=== PATIENT | female | born 1940 | race Caucasian/White ===

== ENCOUNTER → 2017-11-23 | Outpatient (CLI) | payer OTHER ==
[~2017-11-23] MED LIST: IOPAMIDOL (ISOVUE 370) 100 ML BTL IV ONE
== END ==
LOC: FIMAGING 07:49
PROVIDERS: ATTEND Surgery
DX: I87.2 Venous insufficiency (chronic) (peripheral) (principal); R09.89 Other specified symptoms and signs involving the circulatory and respiratory systems; R60.0 Localized edema; Q62.11 Congenital occlusion of ureteropelvic junction; M17.0 Bilateral primary osteoarthritis of knee
CPT/HCPCS: 75635; 93970; Q9967; 82565-PO

== ENCOUNTER → 2018-05-25 | Outpatient (CLI) | payer OTHER | LOC: BHFA 09:30 | PROVIDERS: ATTEND Internal Medicine Cardiovascular Disease | DX: Z01.810 Encounter for preprocedural cardiovascular examination (principal); R01.1 Cardiac murmur, unspecified | CPT/HCPCS: 78452; 93017; 93306; A9500; J2785 ==